=== PATIENT | female | born 1985 | race Caucasian/White ===

== ENCOUNTER 2018-10-16 17:41 | Inpatient (IN) | payer BC ==
[2018-10-16] MEDS ORDERED: OXYTOCIN 10 UNIT/ML 1 ML VIAL IM PRN (18:14)
[2018-10-16] MEDS ORDERED: TERBUTALINE 1 MG/ML VIAL SQ PRN (18:14)
[2018-10-16] MEDS ORDERED: METHYLERGONOVINE 0.2 MG/ML 1 ML AMP IM PRN (18:14)
[2018-10-16] MEDS ORDERED: LIDOCAINE 0.5% (PF) 5 MG/ML (50 ML SDV) SQ PRN (18:14)
[2018-10-16] MEDS ORDERED: CARBOPROST TROMETHAMINE 250 MCG/ML 1 ML AMP IM PRN (18:14)
[2018-10-16] MEDS ORDERED: AMPICILLIN 2,000 MG in SODIUM CHLORIDE 0.9% 100 ML IVPB STA (18:14)
[2018-10-16 18:44] VITALS: BMI 25.1
[2018-10-16 18:53] LABS: Basophils % (A) 0 %; Eosinophils # (A) 0.1 k/uL (0-0.7); Eosinophils % (A) 1 %; HCT 37.6 % (34.0-46.0); Lymphocytes # (A) 1.3 k/uL (1.0-4.8); Lymphocytes % (A) 15 %; MCH 29.6 pg (25.0-35.0); MCHC 34.4 g/dL (31.0-37.0); Mean Platelet Volume 8.2; Monocytes # (A) 0.3 k/uL (0-1.0); Monocytes % (A) 4 %; Neutrophils # (A) 6.6 k/uL (1.3-7.7); Neutrophils % (A) 78 %; Platelet Count 188 k/uL (150-450); RBC 4.38 m/uL (3.80-5.40); WBC 8.5 k/uL (3.8-10.6)
[2018-10-16] MEDS: LACTATED RINGERS 1,000 ML IV SCH (19:16)
[2018-10-16] MEDS: AMPICILLIN 1,000 MG in SODIUM CHLORIDE 0.9% 50 ML IVPB SCH (23:00)
[2018-10-17] MEDS ORDERED: BENZOCAINE/MENTHOL SPRAY 1 GM/SPRAY AEROSOL TOPICAL PRN (00:49)
[2018-10-17] MEDS ORDERED: diphenhydrAMINE 50 MG CAP PO PRN (00:49)
[2018-10-17] MEDS ORDERED: HYDROCORTISONE 2.5% RECTAL CREAM 30 GM TUBE RECTAL PRN (00:49)
[2018-10-17] MEDS ORDERED: IBUPROFEN 600 MG TAB PO PRN (00:49)
[2018-10-17] MEDS ORDERED: ZOLPIDEM 5 MG TAB PO PRN (00:49)
[2018-10-17] MEDS ORDERED: WITCH HAZEL 1 EACH MED..PAD TOPICAL PRN (00:49)
[2018-10-17] MEDS ORDERED: LANOLIN CREAM 5 GM TUBE TOPICAL PRN (00:49)
[2018-10-17] MEDS ORDERED: ACETAMINOPHEN TAB 325 MG TAB PO PRN (00:49)
[2018-10-17] MEDS ORDERED: SIMETHICONE 80 MG CHEWABLE PO PRN (00:49)
[2018-10-17] MEDS ORDERED: diphenhydrAMINE 25 MG CAP PO PRN (00:49)
[2018-10-17] MEDS ORDERED: diphenhydrAMINE 50 MG/ML 1 ML VIAL IVP PRN ×2 (00:49)
--- NOTE | 2018-10-17 00:49 | P.PROBDLV ---
Vaginal Delivery Note - . Vaginal Delivery Note: This pleasant 33-year-old 1 para 0 at 40-3/7 weeks that presented to labor and delivery in active labor. Patient was admitted IV antibiotics were given for group beta strep being positive. Patient progressed through labor eventually becoming complete began pushing amniotomy was performed and clear fluid was obtained. Patient had a normal spontaneous vaginal delivery of a viable female infant at 00:06. Apgars of 9 and 9 at one and 5 minutes respectively. Weight is pending as she is bonding with the via skin to skin. Afterwards on inspection the patient's vaginal vault a labial/clitoral and second-degree vaginal laceration was noted. After a two-minute delayed the umbilical cord was doubly clamped and cut and the placenta was delivered spontaneously intact with a three-vessel cord being noted. The uterus was noted be firm and well below the umbilicus. Attention turned to the vaginal vault the labial/clitoral laceration was repaired in a running fashion with 4-0 chromic. The second-degree vaginal laceration was repaired with 3-0 Rapide in the usual fashion. Hemostasis was appreciated after repair was complete. A rectal exam was performed normal tone noted and no abnormalities were noted. Next Estimated blood loss was 300 mL, patient and tolerated delivery well and are resting comfortably.
--- NOTE | 2018-10-17 00:52 | P.HPOB ---
History of Present Illness H&P Date: 10/17/18 Chief Complaint: IUP @ 40 3/7 weeks, labor This is a 33yo at 40 3/7 weeks, that was seen in the office today and found to be 4/100/-2 station. Patient was known GBS positive and encouraged to present to the hospital for which she declined and stated she would go as long as she could at home. Patient noted some vaginal bleeding that presented to the hospital was noted to be 5 cm and agreed to admission and IV antibiotics. Patient was started ernie every 1-3 minutes heart tones were noted to be category 1. Patient noted good movement and denied loss of fluid. On blood work showed a blood type of A-, rubella immune, RPR nonreacti ve, group beta strep as stated above was positive. Review of Systems Constitutional: Denies chills, Denies fatigue, Denies fever Ears, nose, mouth and throat: Denies headache Cardiovascular: Reports leg edema Respiratory: Denies cough, Denies dyspnea Gastrointestinal: Denies constipation, Denies diarrhea, Denies nausea, Denies vomiting Genitourinary: Reports Past Medical History Past Medical History: No Reported History History of Any Multi-Drug Resistant Organisms: None Reported Past Surgical History: No Surgical Hx Reported Past Anesthesia/Blood Transfusion Reactions: Unable to Obtain Past Psychological History: No Psychological Hx Reported Smoking Status: Never smoker Past Alcohol Use History: None Reported Past Drug Use History: None Reported - Past Family History Father Family Medical History: Coronary Artery Disease (CAD) Additional Family Medical History / Comment(s): heart attack 5 yrs ago Medications and Allergies Home Medications Medication Instructions Recorded Confirmed Type Pnv No.95/Ferrous Fum/Folic AC 1 each PO DAILY 10/16/18 10/16/18 History [ Multivitamin Tablet] Allergies Allergy/AdvReac Type Severity Reaction Status Date / Time No Known Allergies Allergy Verified 10/16/18 17:50 Exam Osteopathic Statement: *. No significant issues noted on an osteopathic structural exam other than those noted in the History and Physical/Consult. Vital Signs Temp Pulse Resp BP 10/16/18 18:35 97.6 F 86 18 155/80 Intake and Output 10/16/18 10/16/18 10/17/18 14:59 22:59 06:59 Intake Total 100 Balance 100 Intake: Intake, IV Titration 100 Amount Ampicillin 2,000 mg In 100 Sodium Chloride 0.9% 100 ml @ 200 mls/hr IVPB ONCE STA Rx#:[id number] Other: # Voids 1 Weight 68.538 kg Targeted physical exam is performed on this date in general this is a well- nourished well-developed female in no acute distress. Patient is noted to have nonlabored breathing heart is known to have a regular rate and rhythm abdomen is noted to be gravid and appropriate for gestational age. Estimated weight today in the office was 6 lbs. 6 oz. of note lower remedies are noted have trace edema heart tones returned be category 1 and she is ernie or 1-3 minutes. On admission she was noted to be 5 cm upon com pletion of this note she was complete and +1. Amniotomy was performed with pushing and clear fluid was obtained. Results Result Diagrams: 10/16/18 18:44 Assessment and Plan (1) Term Current Visit: Yes Status: Acute Code(s): Z34.80 - ENCOUNTER FOR SUPRVSN OF NORMAL , UNSP TRIMESTER SNOMED Code(s): 44385630 (2) Positive GBS test Current Visit: Yes Status: Acute Code(s): B95.1 - STREPTOCOCCUS, GROUP B, CAUSING DISEASES [facility] SNOMED Code(s): 3613301043281 (3) Post-dates Current Visit: Yes Status: Acute Code(s): O48.0 - POST-TERM SNOMED Code(s): 90674427 Plan: Patient minutes labor and delivery with anticipation of normal spontaneous vaginal delivery.
[2018-10-17] MEDS ORDERED: OXYTOCIN 20 UNITS/1000 ML NS 1,000 ML IV SCH (01:00)
[2018-10-17] MEDS: LACTATED RINGERS 1,000 ML IV SCH (03:17)
[2018-10-17] MEDS: AMPICILLIN 1,000 MG in SODIUM CHLORIDE 0.9% 50 ML IVPB SCH (03:18)
[2018-10-17] MEDS: SENNOSIDES-DOCUSATE SODIUM 1 EACH TAB PO SCH ×2 (07:56→20:34)
[2018-10-17] MEDS ORDERED: [UNRECOGNIZED DRUG - REMARK] PO SCH (09:00)
--- NOTE | 2018-10-18 08:22 | P.DS ---
Providers Date of admission: 10/16/18 18:14 Expected date of discharge: 10/18/18 Attending physician: Eva Romero Primary care physician: Stated None - Discharge Diagnosis(es) (1) Term Current Visit: Yes Status: Acute (2) Positive GBS test Current Visit: Yes Status: Acute (3) Post-dates Current Visit: Yes Status: Acute (4) Status post vaginal delivery Current Visit: Yes Status: Acute Hospital Course: This is a 33-year-old 1 para 0 that presented to labor and delivery at 40-3/7 weeks in active labor. Patient progressed through labor becoming complete amniotomy was performed and clear fluid was obtained. Patient started pushing and had a normal spontaneous vaginal delivery of a viable female with a weight of 613 at 0006. Apgars of 8 and 9 at one and 5 minutes respectively. Patient did sustain a second-degree mediolateral laceration along with a right labial laceration that was repaired in the usual fashion. On this day #1 she states she is feeling well. She is ambulating and voiding without difficulty. She is tolerating a regular diet without nausea or vomiting. She denies any concerns. She is breast-feeding with some difficulty in seeing the benefits consultant today. She does wish discharge home later today. Patient Condition at Discharge: Good Plan - Discharge Summary New Discharge Prescriptions: No Action Pnv No.95/Ferrous Fum/Folic AC [ Multivitamin Tablet] 1 each PO DAILY Discharge Medication List Pnv No.95/Ferrous Fum/Folic AC [ Multivitamin Tablet] 1 each PO DAILY 10/16/18 [History] Follow up Appointment(s)/Referral(s): Eva Romero DO [Doctor of Osteopathic Medicine] - 6 Weeks Discharge Disposition: HOME SELF-CARE
[2018-10-18 09:24] VITALS: BP 119/81; PULSE 98; RESP 20; TEMP 98.1
[2018-10-18] MEDS: SENNOSIDES-DOCUSATE SODIUM 1 EACH TAB PO SCH (09:27)
== END 2018-10-18 14:30 | disposition home or self-care (01) | DRG 807 ==
LOC: FBPOP 17:41 → 4FBP 18:14
PROVIDERS: ADMIT Obstetrics & Gynecology Obstetrics; ATTEND Obstetrics & Gynecology Obstetrics
PROC: 10E0XZZ Delivery of Products of Conception, External Approach (ICD-10-PCS; principal; 2018-10-16)
PROC: 0KQM0ZZ Repair Perineum Muscle, Open Approach (ICD-10-PCS; 2018-10-16)
DX: O48.0 Post-term pregnancy (principal); Z37.0 Single live birth; O70.1 Second degree perineal laceration during delivery; O99.824 Streptococcus B carrier state complicating childbirth; O70.0 First degree perineal laceration during delivery; O71.89 Other specified obstetric trauma; Z3A.40 40 weeks gestation of pregnancy; Z82.49 Family history of ischemic heart disease and other diseases of the circulatory system
CPT/HCPCS: 59025; 85025; 86850; 86870; 86880; 86900; 86901; 86902; 99213

== ENCOUNTER 2020-12-23 11:20 | Outpatient (CLI) | payer BC, OTHER ==
[2020-12-23 11:56] VITALS: BP 154/82; PULSE 86; RESP 16; TEMP 97.2
--- NOTE | 2020-12-23 14:02 | US ---
EXAMINATION TYPE: US OB >= 14 wk fetus DATE OF EXAM: 12/23/2020 COMPARISON: None CLINICAL HISTORY: BPP, CARLOS, EFW, Patient stated irregular heart rate thus OB> and BPP was order ed: TECHNIQUE: Transabdominal (TA) GESTATIONAL AGE / DATING Physician Established: (37 weeks/4days) EDC: 01/09/2021 Dates by LMP: LMP unknown Dates by First Scan: this is first scan here. Dates by Current Scan: (35 weeks/2 days) EDC: 01/25/2021 Beta HCG (if available): NA SURVEY IUP: Single PLACENTA: Posterior PREVIA: No Previa CARLOS: 11.1 cm Normal CERVICAL LENGTH (transabdominal: norm > 3.0cm): 3.0 cm BIOMETRY PRESENTATION: Vertex LIE: Longitudinal BPD: 8.99 cm 36 weeks / 3 days HC: 31.62 cm 35 weeks / 4 days AC: 31.50 cm 35 weeks / 3 days FL: 6.90 cm 35 weeks / 3 days ESTIMATED WEIGHT IN GRAMS: 2702.0 grams ESTIMATED WEIGHT IN LBS/OZ: 5 lbs. 15 oz. WEIGHT PERCENTAGE BASED ON ESTABLISHED DATES: 13.3% HC/AC: 1.00 Normal FL/AC: 21.89 Normal HEART RATE: 126 bpm RHYTHM: Normal Single, live IUP, 35 weeks/2 days, EDC: 01/25/2021 , HR126 with regular rhythm. IMPRESSION: Single viable intrauterine 35 weeks 2 days with a heart rate of 126 bpm.
--- NOTE | 2020-12-29 15:12 | P.MSEPDOC ---
Presenting Problems - Arrival Data Date of Arrival on Unit: 12/23/20 Time of Arrival on Unit: 11:20 Mode of Transport: Portable - Complaint OB-Reason for Admission/Chief Complaint: Observation/Evaluation Comment: sent from office for BPP and NST Medical History - Information : 2 Para: 1 Number of Living Children: 1 - Gestational Age Gestational Age by HAVEN (wks/days): 37 Weeks and 4 Days Review of Systems - Review of Systems Constitutional: No problems Breast: No problems ENT: No problems Cardiovascular: No problems Respiratory: No problems Gastrointestinal: Diarrhea Genitourinary: No problems Musculoskeletal: No problems Neurological: No problems Skin: No problems Vital Signs - Temperature Temperature: 97.2 F Temperature Source: Temporal Artery Scan - Pulse Right Sitting Brachial Pulse Rate: 86 Pulse Assessment Method: Automatic Cuff - Respirations Respiratory Rate: 16 Oxygen Delivery Method: Room Air O2 Sat by Pulse Oximetry: 99 - Blood Pressure Right Arm Sitting Blood Pressure: 154/82 Blood Pressure Mean: 106 Blood Pressure Source: Automatic Cuff Physician Notification - Physician Notified Physician Notified Date: 12/23/20 Physician Notified Time: 11:50 Physician: Dr Romero New Order Received: Yes Maternal Triage Index - Maternal Triage Index Presenting for scheduled procedure w/no complaint: Yes - Scheduled/Requesting Priority 5 Scheduled/Requesting Priority 5: Yes Criteria Met for Priority 5: BPP, NST Disposition - Disposition OB Disposition: Observe Discharge Date: 12/23/20 Discharge Time: 13:35 I agree with the RN Medical Screening Exam: Yes Case reviewed; plan agreed upon as documented in EMR&OBIX.: Yes Diagnosis: RELATED CONDITIONS, UNSPECIFIED, THIRD TRIMESTER
== END 2020-12-23 13:35 | disposition home or self-care (01) ==
LOC: FBPOP 11:20
PROVIDERS: ATTEND Obstetrics & Gynecology Obstetrics
DX: O36.8330 Maternal care for abnormalities of the fetal heart rate or rhythm, third trimester, not applicable or unspecified (principal); O09.523 Supervision of elderly multigravida, third trimester; Z3A.35 35 weeks gestation of pregnancy
CPT/HCPCS: 59025; 76805; 76819

== ENCOUNTER 2020-12-24 | Inpatient (IN) | payer BC, OTHER | END 2020-12-25 14:00 | disposition home or self-care (01) | DRG 807 | PROVIDERS: ADMIT Obstetrics & Gynecology Obstetrics | PROC: 3E033VJ Introduction of Other Hormone into Peripheral Vein, Percutaneous Approach (ICD-10-PCS; principal; 2020-12-24) | PROC: 10E0XZZ Delivery of Products of Conception, External Approach (ICD-10-PCS; principal; 2020-12-24) | PROC: 0HQ9XZZ Repair Perineum Skin, External Approach (ICD-10-PCS; principal; 2020-12-24) | PROC: 10907ZC Drainage of Amniotic Fluid, Therapeutic from Products of Conception, Via Natural or Artificial Opening (ICD-10-PCS; principal; 2020-12-24) | DX: O36.5930 Maternal care for other known or suspected poor fetal growth, third trimester, not applicable or unspecified (principal); Z37.0 Single live birth; O69.3XX0 Labor and delivery complicated by short cord, not applicable or unspecified; Z3A.37 37 weeks gestation of pregnancy; O99.824 Streptococcus B carrier state complicating childbirth; Z82.49 Family history of ischemic heart disease and other diseases of the circulatory system | CPT/HCPCS: 85025; 86850; 86870; 86880; 86900; 86901; 88307 ==

== ENCOUNTER 2022-07-31 21:31 | Emergency (ER) | payer BC, OTHER ==
[2022-07-31] MEDS ORDERED: DIPH,PERTUS(ACELL)TETVAC-LF 0.5 ML VIAL IM ONE (21:53)
[2022-07-31] MEDS ORDERED: LIDOCAINE 1% INJ 10MG/ML (30 ML VIAL-PF) SQ ONE (21:53)
[2022-07-31 21:54] VITALS: BP 152/87; PULSE 77; RESP 16; TEMP 97.8
--- NOTE | 2022-07-31 21:54 | ED ---
General Adult HPI - General Source: patient, RN notes reviewed Mode of arrival: ambulatory Limitations: no limitations <Jesu Sheffield - Last Filed: 07/31/22 21:53> <Shane Haq - Last Filed: 08/01/22 00:03> - General Stated complaint: Left Hand Laceration Time Seen by Provider: 07/31/22 21:54 - History of Present Illness Initial comments: 37-year-old female presents emergency department to complaint of left hand laceration. Patient states that she was using a knife and cut her left hand. She is [id number]. Patient states she is unsure when her last tetanus was. Patient states she has a laceration approximately 1 inch long during her first and second digit. Denies any paresthesias. (Jesu Sheffield) This is a 37-year-old female with no past medical history presents emergency department for a left hand laceration. The patient stated that she had a new set of knives and she was cutting a peach when she cut the base of her left thumb on the inner aspect of her hand. The patient had full range of motion of her hand and thumb. The patient did not know when her last tetanus shot was. T he patient denied any numbness or tingling. The patient was resting in bed comfortably. (Shaen Haq) - Related Data Home Medications Medication Instructions Recorded Confirmed Pnv No.95/Ferrous Fum/Folic AC 1 each PO DAILY 10/16/18 12/24/20 [ Multivitamin Tablet] Allergies Allergy/AdvReac Type Severity Reaction Status Date / Time No Known Allergies Allergy Verified 07/31/22 21:50 Review of Systems ROS Other: All systems not noted in ROS Statement are negative. <Jesu Sheffield - Last Filed: 07/31/22 21:53> ROS Other: All systems not noted in ROS Statement are negative. <Shane Haq - Last Filed: 08/01/22 00:03> ROS Statement: Those systems with pertinent positive or pertinent negative responses have been documented in the HPI. Past Medical History Past Medical History: No Reported History History of Any Multi-Drug Resistant Organisms: None Reported Past Surgical History: No Surgical Hx Reported Additional Past Surgical History / Comment(s): hip "procedure" as an Past Anesthesia/Blood Transfusion Reactions: Unable to Obtain Past Psychological History: No Psychological Hx Reported Smoking Status: Never smoker Past Alcohol Use History: None Reported Past Drug Use History: None Reported - Past Family History Father Family Medical History: Coronary Artery Disease (CAD) Additional Family Medical History / Comment(s): heart attack 5 yrs ago <YohannesJesu Moya - Last Filed: 07/31/22 21:53> General Exam Limitations: no limitations <JudycourtneyJesu Moya - Last Filed: 07/31/22 21:53> Limitations: no limitations General appearance: alert, in no apparent distress Head exam: Present: atraumatic, normocephalic, normal inspection Eye exam: Present: normal appearance, PERRL Pupils: Present: normal accommodation ENT exam: Present: normal exam, normal oropharynx, mucous membranes moist Neck exam: Present: normal inspection, full ROM Respiratory exam: Present: normal lung sounds bilaterally Cardiovascular Exam: Present: regular rate, normal rhythm, normal heart sounds GI/Abdominal exam: Present: soft, normal bowel sounds Extremities exam: Present: normal inspection, full ROM Back exam: Present: normal inspection, full ROM Neurological exam: Present: alert, oriented X3, CN II-XII intact Psychiatric exam: Present: normal affect, normal mood Skin exam: Present: warm, dry, other (Approximately 1.5 cm laceration noted to the inner aspect at the base of the left thumb) <Shane Haq - Last Filed: 08/01/22 00:03> Course Vital Signs 07/31/22 21:50 Temperature 97.8 F Pulse Rate 77 Respiratory 16 Rate Blood Pressure 152/87 O2 Sat by Pulse 100 Oximetry Procedures - Laceration Laceration #1 Consent Obtained: verbal consent Indication: laceration Site: hand Size (cm): 1 Description: linear Depth: simple, single layer Pre-repair: irrigated extensively Patient Tolerated Procedure: well <Shane Haq - Last Filed: 08/01/22 00:03> - Laceration Laceration #1 Additional Comments: Dermabond applied. (Shane Haq) Medical Decision Making <Shane Haq - Last Filed: 08/01/22 00:03> - Medical Decision Making Was pt. sent in by a medical professional or institution (, PA, ATHLETIC DIRECTOR, urgent care, hospital, or prison...) When possible be specific @ -No Did you speak to anyone other than the patient for history (EMS, parent, family, police, friend...)? What history was obtained from this source @ -No Did you review nursing and triage notes (agree or disagree)? Why? @ -I reviewed and agree with nursing and triage notes Were old charts reviewed (outside hosp., previous admission, EMS record, old EKG, old radiological studies, urgent care reports/EKG's, prison records)? Report findings @ -No old charts were reviewed Differential Diagnosis (chest pain, altered mental status, abdominal pain women, abdominal pain men, vaginal bleeding, weakness, fever, dyspnea, syncope, headache, dizziness, GI bleed, back pain, seizure, CVA, palpatations, mental health)? @ -Hand laceration, possible tendon involvement EKG interpreted by me (3pts min.). @ -None X-rays interpreted by me (1pt min.). @ -None done CT interpreted by me (1pt min.). @ -None done U/S interpreted by me (1pt. min.). @ -None done What testing was considered but not performed or refused? (CT, X-rays, U/S, labs)? Why? @ -None What meds were considered but not given or refused? Why? @ -None Did you discuss the management of the patient with other professionals (professionals i.e. , PA, ATHLETIC DIRECTOR, lab, RT, psych nurse, social media job titles, material handler 2nd shift, teacher, vice squad police officer, case management specialist)? Give summary @ -No Was smoking cessation discussed for >3mins.? @ -No Was critical care preformed (if so, how long)? @ -No Were there social determinants of health that impacted care today? How? (Homelessness, low income, unemployed, alcoholism, drug addiction, transportation, low edu. Level, literacy, decrease access to med. care, senior care, rehab)? @ -No Was there de-escalation of care discussed even if they declined (Discuss DNR or withdrawal of care, Hospice)? DNR status @ -No What co-morbidities impacted this encounter? (DM, HTN, Smoking, COPD, CAD, Ca ncer, CVA, ARF, Chemo, Hep., AIDS, mental health diagnosis, sleep apnea, morbid obesity)? @ -None Was patient admitted / discharged? Hospital course, mention meds given and route, prescriptions, significant lab abnormalities, going to OR and other pertinent info. @ -The patient was seen and evaluated emergency department. Physical exam, the patient was resting in bed without any acute distress. Vital signs were stable. The patient did receive a tetanus booster. The laceration was repaired and the patient tolerated the procedure well. The patient was advised to report back to the emergency department she any worsening pain or complaints. The patient was agreeable to this and all of her questions were answered. The patient was discharged home in stable condition with her mother. Undiagnosed new problem with uncertain prognosis? @ -No Drug Therapy requiring intensive monitoring for toxicity (Heparin, Nitro, Insulin, Cardizem)? @ -No Were any procedures done? @ -No Diagnosis/symptom? @ -Left hand laceration Acute, or Chronic, or Acute on Chronic? @ -Acute Uncomplicated (without systemic symptoms) or Complicated (systemic symptoms)? @ -Uncomplicated Side effects of treatment? @ -No Exacerbation, Progression, or Severe Exacerbation? @ -No Poses a threat to life or bodily function? How? (Chest pain, [place], [place], pneumonia, PE, COPD, DKA, ARF, appy, cholecystitis, CVA, Diverticulitis, Homicidal, Suicid al, threat to staff... and all critical care pts) @ -No (Shane Haq) Disposition <Jesu Sheffield - Last Filed: 07/31/22 21:53> Is patient prescribed a controlled substance at d/c from ED?: No Time of Disposition: 23:30 <Shane Haq - Last Filed: 08/01/22 00:03> Clinical Impression: Laceration Disposition: HOME SELF-CARE Condition: Stable Instructions (If sedation given, give patient instructions): Finger Laceration (ED), Skin Adhesive Care (ED) Referrals: None,Stated [REFERRING] - 1-2 days
[2022-07-31] MEDS ORDERED: TOPICAL SKIN ADHESIVE 1 EACH AMP TOPICAL ONE (23:33)
== END 2022-07-31 23:45 | disposition home or self-care (01) ==
LOC: EC 21:31
DX: S61.412A Laceration without foreign body of left hand, initial encounter (principal); Z23 Encounter for immunization; W26.0XXA Contact with knife, initial encounter
CPT/HCPCS: 12001; 90471; 90715; 99282

== ENCOUNTER 2024-09-22 08:54 | Day surgery (SDC) | payer OTHER ==
[2024-09-18 16:44] VITALS: BMI 20.3
[~2024-09-22 08:54] MED LIST: LIDOCAINE 1% (10MG/ML) FOR IV START INTRADERMA PRN
[2024-09-22] MEDS: IV FLUID CONTINUATION 1,000 ML IV ONE (09:34)
[2024-09-22 09:35] VITALS: TEMP 98
[2024-09-22] MEDS: LACTATED RINGERS 1,000 ML IV SCH (09:36)
[2024-09-22] MEDS ORDERED: PROPOFOL 10 MG/ML 20 ML VIAL IV ONE (09:49)
[2024-09-22] MEDS ORDERED: LIDOCAINE 1% INJ 10MG/ML (20 ML MDV) ONE (09:49)
[2024-09-22 10:20] VITALS: RESP 16
[2024-09-22 10:31] VITALS: BP 119/75; PULSE 83
--- NOTE | 2024-09-22 10:32 | P.PCN ---
Date of Procedure: 09/22/24 Preoperative Diagnosis: Hemorrhoids Postoperative Diagnosis: Internal hemorrhoids Procedure(s) Performed: Colonoscopy Anesthesia: MAC Surgeon: Braydon Palomo Pathology: none sent Condition: stable Disposition: same day Indications for Procedure: 39-year-old female presents today for colonoscopy secondary to occasional painful hemorrhoids. She has never had colonoscopy previously. No family history of colon cancer. Operative Findings: Mild internal hemorrhoids Description of Procedure: The patient was brought to the endoscopy suite and placed in left lateral decubitus position and adequate sedation was achieved using conscious sedation. Digital rectal exam was performed and mild internal hemorrhoids were palpated. An endoscope was then placed in the rectum and advanced to the cecum as identified by landmarks including the appendiceal orifice and the ileocecal valve. The prep was good. The colonoscope was then slowly withdrawn, examining for any mucosal abnormalities. The cecum, ascending, transverse, descending and sigmoid colon were visualized adequately. There were no large neoplastic lesions noted throughout the colon. There were no obvious polyps noted throughout the colon. No evidence of diverticulosis. Hemostasis was maintained. Retroflexion was performed in the rectum and internal hemorrhoids. Excess air was removed, the colonoscope withdrawn and the procedure terminated. The patient was then transferred to the recovery unit in stable condition. Repeat colonoscopy should be performed in 10 years.
== END 2024-09-22 11:09 | disposition home or self-care (01) ==
LOC: ORWHC2ENDO 08:54
PROVIDERS: ATTEND Surgery
DX: K64.8 Other hemorrhoids (principal); F41.9 Anxiety disorder, unspecified; F32.A Depression, unspecified; R09.81 Nasal congestion
CPT/HCPCS: 81025; 45378; J2003; J2704